=== PATIENT | male | born 1975 | race Caucasian/White ===

== ENCOUNTER → 2019-05-29 08:47 | Outpatient (CLI) | payer BC, SELFPAY ==
--- NOTE | 2019-05-29 08:55 | US_ITS ---
STUDY: RENAL ULTRASOUND - COMPLETE REASON FOR EXAM: Male, 43 years old. Microscopic hematuria. TECHNIQUE: Ultrasound evaluation of the kidneys was performed with real-time and static encinas-scale imaging. COMPARISON: None. FINDINGS: RIGHT KIDNEY: Normal location of the right kidney, which is normal in size. The right kidney measures 11.0 x 5.9 x 5.0 cm. There is a normal cortex of the right kidney. The renal cortex measures 1.7 cm. There is no right renal mass or cyst. There are no right renal calculi. There is no right hydronephrosis. DISTAL RIGHT URETER: There is non-visualization of the distal right ureter. There is no demonstrated right ureterovesical junction calculus. There is no demonstrated right ureteral jet. LEFT KIDNEY: Normal location of the left kidney, which is normal in size. The left kidney measures 11.3 x 4.9 x 6.5 cm. There is a normal cortex of the left kidney. The renal cortex measures 2.0 cm. There is no left renal mass or cyst. There are no left renal calculi. There is mild hydronephrosis of the left kidney. DISTAL LEFT URETER: There is non-visualization of the distal left ureter. There is no demonstrated left ureterovesical junction calculus. There is no demonstrated left ureteral jet. BLADDER: The distended urinary bladder has a volume of 41.2 ml. The empty urinary bladder has a volume of 2.18 ml. There is a normal wall thickness of the distended urinary bladder. There is no demonstrated mass within the urinary bladder. There are no demonstrated bladder calculi. US/Kidney and Bladder IMPRESSION: Mild left hydronephrosis, etiology indeterminate. If indicated, this can be further assessed with CT of the abdomen and pelvis. Remainder of the retroperitoneal ultrasound unremarkable. Minimal urinary retention of indeterminate clinical significance. Electronically Signed: Deidre Michelle MD at 4:31 EST , Service support ,
--- NOTE | 2019-05-29 09:16 | RAD_ITS ---
STUDY: X-RAY - CERVICAL SPINE REASON FOR EXAM: Male, 43 years old. Left shoulder pain. TECHNIQUE: 5 view(s) of the cervical spine were obtained. COMPARISON: None FINDINGS: Normal anterior atlantoaxial articulation. Normal odontoid process. Normal cervical lordosis. Normal vertebral bodies and endplates. Normal disc space heights. Normal visualized intervertebral neuroforamina. The soft tissue structures are unremarkable. There is no demonstrated fracture of the cervical spine. RAD/Cerv Spine 4 or 5 Views IMPRESSION: Normal x-ray examination of the visualized cervical spine. Electronically Signed: Deidre Michelle MD at 4:05 EST , Service support ,
== END ==
PROVIDERS: Family Provider Nurse Practitioner; PCP Nurse Practitioner; Referring Provider Nurse Practitioner; Visit Provider Nurse Practitioner
DX: R35.1 Nocturia (principal); R20.0 Anesthesia of skin
CPT/HCPCS: 72050; 76770

== ENCOUNTER → 2019-06-14 16:45 | Outpatient (CLI) | payer BC, SELFPAY ==
[2019-06-14 17:52] LABS: PSA,Total- Diagnostic 1.07 ng/mL (0.0-4.0)
== END ==
PROVIDERS: Family Provider Nurse Practitioner; PCP Nurse Practitioner; Referring Provider Nurse Practitioner Adult Health; Visit Provider Nurse Practitioner Adult Health
DX: R31.29 Other microscopic hematuria (principal)
CPT/HCPCS: 36415; 84153

== ENCOUNTER → 2019-06-29 07:17 | Outpatient (CLI) | payer BC, SELFPAY ==
--- NOTE | 2019-06-29 07:20 | CT_ITS ---
STUDY: CT ABDOMEN AND PELVIS WITH AND WITHOUT CONTRAST REASON FOR EXAM: Male, 43 years old. MICROSCOPIC HEMATURIA RADIATION DOSAGE (If Supplied By Facility): CTDIvol = ( 14.00 ) mGy, DLP = ( 1727.71 ) mGycm TECHNIQUE: Transaxial images were obtained from the dome of the diaphragm to the symphysis pubis with oral contrast. IV 100mL Isovue-300 was administered. Sagittal and coronal images were reconstructed. Individualized dose optimization techniques were used for this CT. COMPARISON: None. FINDINGS: The visualized lung bases are unremarkable. The visualized portions of the heart are within normal limits. Normal liver. Normal gallbladder and extrahepatic biliary system. There are multiple benign calcified granulomata of the spleen. Normal pancreas. Normal bilateral adrenal glands. No hydronephrosis. Tiny punctate calcification of the right kidney on image 35 of series 2 measures 1-2 mm. No ureteral calcifications. Left parapelvic cysts is simple appearing without significant enhancement. The visualized opacified ureters are unremarkable. Normal visualized stomach. Normal small intestine. Normal colon. The appendix is visualized and appears normal. Normal abdominal aorta. Normal inferior vena cava. Normal retroperitoneum. Unremarkable urinary bladder. There is a small umbilical hernia containing fat. There are degenerative changes of the lower thoracic spine. CT/CT Abd/Pelvis W/WO Contrast IMPRESSION: 1. Punctate nonobstructing right renal calculus. No hydronephrosis. 2. Left parapelvic renal cyst (simple, Bosniak I). Electronically Signed: Srinivasa Martinez MD (Brooks) at 14:55 EST , Service support ,
== END ==
PROVIDERS: Family Provider Nurse Practitioner; PCP Nurse Practitioner; Referring Provider Nurse Practitioner Adult Health; Visit Provider Nurse Practitioner Adult Health
DX: R31.29 Other microscopic hematuria (principal)
CPT/HCPCS: 74178; Q9967

== ENCOUNTER 2021-07-26 06:37 | Emergency (ER) | payer BC, SELFPAY ==
[2021-07-26 06:40] VITALS: BP 159/102; PULSE 76; RESP 16; TEMP 36.5; O2SAT 100; BMI 29.1
--- NOTE | 2021-07-26 06:48 | CT_ITS ---
STUDY: CT ABDOMEN AND PELVIS WITH CONTRAST REASON FOR EXAM: Male, 45 years old. Abd pain, H/O ulcerative colitis -- IV PO Contrast RADIATION DOSAGE (If Supplied By Facility): CTDIvol = ( 7.72 ) mGy, DLP = ( 817.13 ) mGycm TECHNIQUE: Transaxial images were obtained from the dome of the diaphragm to the symphysis pubis with oral contrast. Oral and amp; IV GASTROGRAFIN and amp; 100mL Isovue-300 was administered. Sagittal and coronal images were reconstructed. Individualized dose optimization techniques were used for this CT. COMPARISON: Comparison is made with prior study dated 06/29/2019. FINDINGS: The visualized lung bases are unremarkable. The visualized portions of the heart are within normal limits. Normal liver. Normal gallbladder and extrahepatic biliary system. There are multiple benign calcified granulomata of the spleen. Normal pancreas. Normal bilateral adrenal glands. Normal right kidney. Small left parapelvic cysts. Normal visualized stomach. There is evidence of circumferential thickening with focal areas of narrowing of the the distal ileum as well as the terminal ileum. Increased markings in the surrounding peritoneal fat with a small lymph nodes. This is suggestive for Crohn''s disease. There is diverticulosis of the transverse colon and sigmoid colon. Normal colon. The appendix is visualized and appears normal. Normal abdominal aorta. Normal inferior vena cava. Normal retroperitoneum. Normal urinary bladder. Small bilateral inguinal hernias containing fat worse on the left side. Small umbilical hernia containing fat. Normal osseous structures. CT/Abdomen/Pelvis WITH Contrast IMPRESSION: Small bowel inflammatory changes involving the terminal ileum as well as the distal ileum suggestive of Crohn''s disease. Electronically Signed: Chon Hull MD at 9:17 EST ,
--- NOTE | 2021-07-26 06:48 | EX.ED.DYSGE1 ---
HPI History of Present Illness Chief Complaint: General Illness Detail of Chief Complaint: Abdominal pain, N/V/D, headache Informant: patient Onset/Context/Timing Onset: Days (3 days ago) Context: Gradual Onset Current Severity: Moderate Maximum Severity: Moderate Narrative Narrative: Patient presents secondary to abdominal pain along with nausea, vomiting, and diarrhea. He also complains of headache. He denies fever or chills. Patient does have a history of ulcerative colitis. He is not currently taking any chronic medication for his ulcerative colitis. Spouse believes his last colonoscopy was 2 years ago and he is due to have another one this year. He denies any blood in the vomitus or stool. Patient did have Covid in late May. He recently received his booster shot. He is unsure if this is related to his current symptoms. [facility] Medical History Ulcerative colitis Allergy/AdvReac Type Severity Reaction Status Date / Time No Known Allergies Allergy Verified 07/26/21 06:38 Surgical History no surgical history Social History Smoking Status: Never smoker ROS ROS ED Constitutional Constitutional ED: Denies chills or fever(s) Eyes Eyes: Denies change in vision ENT ENT ED: Denies sore throat Cardiovascular Cardiovascular: Denies chest pain Respiratory/Chest Respiratory/Chest: Denies cough or dyspnea Gastrointestinal Gastrointestinal: Reports abdominal pain, diarrhea, nausea and vomiting Genitourinary Genitourinary ED: Denies dysuria Musculoskeletal Musculoskeletal: Denies back pain Integumentary Denies rash Neurologic Neurologic: Reports headache(s); Denies weakness Allergic/Immunologic Allergic/Immunologic ED: Denies urticaria EXAM Physical Exam Const Vital Signs: 07/26/21 06:40 07/26/21 06:43 Temperature 97.7 F L Temperature Source Temporal Pulse Rate 76 Respiratory Rate 16 Respiratory Effort Normal Respiratory Pattern Normal Blood Pressure 159/102 H Blood Pressure Mean 121 Pulse Ox 100 Positive well nourished and well developed General Appearance ED: well developed Eyes PERRL and EOMs intact bilaterally Neck supple Resp normal respiratory effort and clear to auscultation bilaterally Cardio regular rate and regular rhythm GI GI Narrative: Mild diffuse tenderness to palpation. No guarding or rebound. Auscultation: hypoactive bowel sounds Palpation: soft Extremity normal to inspection Neuro oriented x3 Sensorium / Orientation: alert Psych mental status grossly normal Skin no rashes or lesions noted MDM MDM MDM Narrative Medical decision making narrative: Patient given morphine and Zofran along with IV fluids. Lab work and CT scan of the abdomen pelvis obtained. Lab Data Labs: Laboratory Results - last 24 hr 07/26/21 06:50 WBC 6.8 RBC 5.00 Hgb 14.5 Hct 42.6 MCV 85.2 MCH 29.0 MCHC 34.0 RDW Std Deviation 36.8 RDW Coeff of Pablo 11.9 Plt Count 220 MPV 9.6 Immature Gran % (Auto) 0.100 Neut % (Auto) 74.4 H Lymph % (Auto) 15.5 L [place] % (Auto) 8.2 Eos % (Auto) 1.5 Baso % (Auto) 0.3 Absolute Neuts (auto) 5.1 Absolute Lymphs (auto) 1.06 Nucleated RBC % 0 Treatment and Re-Evaluation Comments:: Final test results pending at this time. Patient signed out to oncoming physician for final repeat exam and disposition. Discharge Plan Triage Chief Complaint: General Illness ED Provider: Celia Leone Dx/Rx/DC Orders Primary Care Provider: Lamar Knott NP Referrals: Lamar Knott ASSISTANT RESEARCH SCIENTIST, ASSISTANT RESEARCH SCIENTIST-C [Primary Care Provider] -
[2021-07-26] MEDS: Ondansetron 4 MG/2 ML Vial IV (06:57)
[2021-07-26] MEDS: 0.9% Normal Saline 1,000 ML 150 ML IV (06:57)
[2021-07-26] MEDS: Morphine 4 MG/ML Syringe IV (06:58)
[2021-07-26 07:03] LABS: Absolute Lymphocyte Count 1.06 X10^3/uL (0.83-4.51); Absolute Neutrophil Count 5.1 X10^3/uL (2.0-7.7); Basophil# 0.02 X10^3/uL; Basophil% 0.3 % (0-1); Eosinophils% 1.5 % (0-5); Hematocrit 42.6 % (40-54); Hemoglobin 14.5 g/dL (13.0-16.5); Lymphocyte # 1.06 X10^3/ul (0.83-4.51); Lymphocyte % 15.5 % (19-41); Mean Corpuscular Volume 85.2 fL (80-94); Mean Platelet Vol. 9.6 fl (6.2-12.0); Monocyte# 0.56 X10^3/uL; Monocyte% 8.2 % (0-10); NRBC Flagged by Analyzer 0 % (0-5); Neutrophil # 5.08 X10^3/uL (2.7-7.7); Neutrophil % 74.4 % (47-70); Platelet Count 220 K/mm3 (150-450); RBC Distribution Width CV 11.9 % (11.6-14.6); RBC Distribution Width SD 36.8 fl (35.1-43.9); White Blood Count 6.8 K/mm3 (4.4-11.0)
[2021-07-26] MEDS: Contrast Allergy Safety Check IV (07:15)
[2021-07-26 07:24] LABS: AST(SGOT) 28 U/L (15-37); Alanine Aminotransfer ALT/SGPT 55 U/L (16-61); Albumin, Serum 3.7 g/dL (3.2-5.0); Alkaline Phosphatase 57 U/L (45-117); Anion Gap 9 (5-15); BUN 20 mg/dL (7-18); BUN/Creat Ratio 18.7 RATIO (10-20); Bilirubin, Direct 0.18 mg/dL (0.00-0.30); Calcium,Total 8.9 mg/dL (8.5-10.1); Chloride 102 mmol/L (98-107); Creatinine, Serum 1.07 mg/dL (0.70-1.30); EST Glomerular Filtration Rate 80 mL/min (>60); Est Glom Filt Rate - Afr Amer 96 mL/min (>60); Estimated Creatinine Clearance 82.37 ml/min; Glucose 116 mg/dL (74-106); Lipase 78 U/L (73-393); Protein, Total 7.7 g/dL (6.4-8.2); Sodium Level 133 mmol/L (136-145)
[2021-07-26 08:41] VITALS: BP 158/80; PULSE 75; RESP 16; O2SAT 99
[2021-07-26] MEDS: predniSONE 20 MG Tablet 60 MG PO (10:33)
[2021-07-26 10:34] VITALS: BP 156/90; PULSE 74; RESP 16; O2SAT 98
== END 2021-07-26 10:35 | disposition home or self-care (01) ==
PROVIDERS: Emergency Provider Emergency Medicine; PCP Nurse Practitioner; Visit Provider Emergency Medicine
DX: K51.90 Ulcerative colitis, unspecified, without complications (principal)
CPT/HCPCS: 74177; 80048; 80076; 83690; 85025; 96374; 96375; 99284; J7030; Q9967; A4216; J2405

== ENCOUNTER 2023-05-01 14:59 | Emergency (ER) | payer BC, SELFPAY ==
[2023-05-01 15:00] VITALS: BP 167/116; PULSE 85; RESP 16; TEMP 36.6; O2SAT 100
[2023-05-01 15:28] VITALS: BMI 29.4
[2023-05-01 15:57] VITALS: BP 156/105; PULSE 77; RESP 15; O2SAT 99
--- NOTE | 2023-05-01 16:32 | EKG12_ITS ---
Test Reason : DIZZINESS Blood Pressure : / mmHG Vent. Rate : 073 BPM Atrial Rate : 073 BPM P-R Int : 136 ms QRS Dur : 086 ms QT Int : 378 ms P-R-T Axes : 031 023 -05 degrees QTc Int : 416 ms Normal sinus rhythm T wave abnormality, consider inferior ischemia Abnormal ECG Confirmed by KATYA BUI, ALLISON ([id number]), photo editor STEPHANIE REYNAGA ([id number]) on 05/12/2023 7:38:24 AM Referred By: Confirmed By:JENNIFER ALDANA MD
--- NOTE | 2023-05-01 16:32 | CT_ITS ---
INDICATION: Hypertensive urgency EXAMINATION: CT BRAIN - CT Head or Brain W/O Contrast Injection TECHNIQUE: Multiple axial images were obtained of the head without intravenous contrast. A radiation dose optimization technique was used for this scan. IV Contrast dosage and agent: None. COMPARISON: None. FINDINGS: BRAIN PARENCHYMA: No intra- or extra-axial hemorrhage. No evidence of acute infarct. No intracranial mass or mass effect. Posterior fossa structures are unremarkable. CSF SPACES: Appropriate for age. No hydrocephalus. Basal cisterns are patent. CALVARIUM, SKULL BASE, PARANASAL SINUSES AND MASTOID AIR CELLS: Near total opacification of the right maxillary sinus. No discrete lytic or blastic abnormalities. ORBITS: Both globes, extraocular muscles, optic nerves and retrobulbar fat appear unremarkable. CT/Brain/Head without Contrast IMPRESSION: No acute intracranial findings. Right maxillary sinusitis. Electronically Signed: Dylon Live MD at 17:39 EDT ,
--- NOTE | 2023-05-01 16:33 | EDS_ITS ---
HPI History of Present Illness Chief Complaint: Eye Problem Informant: patient and spouse/S.O. Narrative Narrative: 47-year-old male presenting to the emergency room with chief complaint of blurred vision. Patient states that today around 1130 while at work he suddenly had bilateral blurry vision. He also associates that with a frontal periorbital headache. Blurry vision has subsequently resolved. Symptoms lasted 3 to 4 hours. He denies any arm leg or speech symptoms. He has a history of hypertension and has been on amlodipine 5 mg for the past several years. He states this is never happened to him before. For the past 2 months he has had a intermittent pain in the right shoulder. It is not worse with movements. States that aches and last variable lengths. He states he cannot lay on it at night. He denies any trauma. Again no movements change the pain or uses it. No rashes. No urinary symptoms. He states that normally his blood pressure is normal while he takes the medication. He notes that at times people comment that his ears will suddenly appear very red and light redness around the ears onto the neck. In 2013 the patient had echocardiogram that had a positive bubble study. He did not follow-up with cardiology regarding this. Echocardiogram otherwise was negative with normal ejection fraction. [facility] Medical History Hypertension Ulcerative colitis Home Medications prednisone 20 mg tablet 60 mg (3 x 20 mg) PO DAILY #12 TABLETS 07/26/21 [Rx Last Taken Unknown] amlodipine 5 mg tablet 5 mg PO DAILY 05/01/23 [History Last Taken Unknown] Allergy/AdvReac Type Severity Reaction Status Date / Time No Known Allergies Allergy Verified 05/01/23 15:00 Social History Smoking Status: Never smoker ROS ROS ED Constitutional Constitutional ED: Denies chills, fever(s) or weight loss Eyes Eyes: Reports blurry vision; Denies change in vision or diplopia ENT ENT ED: Denies ear pain, rhinorrhea or sore throat Cardiovascular Cardiovascular: Denies chest pain, orthopnea, palpitations or racing heartbeat Respiratory/Chest Respiratory/Chest: Denies cough, dyspnea or orthopnea Gastrointestinal Gastrointestinal: Denies abdominal pain, diarrhea, nausea or vomiting Genitourinary Genitourinary ED: Denies dysuria, hematuria or urinary frequency Musculoskeletal Musculoskeletal: Reports other Details: Right shoulder pain ; Denies arthralgias, back pain, myalgias or neck pain Integumentary Denies abscess or rash Neurologic Neurologic: Reports headache(s); Denies weakness Psychiatric Psychiatric: Denies anxiety, depression, suicidal ideation or suicidal thoughts Endocrine Endocrinology: Denies polydipsia, polyphagia or polyuria Allergic/Immunologic Allergic/Immunologic ED: Denies mouth swelling, tongue swelling or urticaria EXAM Physical Exam Const Vital Signs: 05/01/23 15:00 05/01/23 15:31 05/01/23 15:57 Temperature 98 F Temperature Source Temporal Pulse Rate 85 77 Respiratory Rate 16 15 Respiratory Effort Normal Non-Labored Blood Pressure 167/116 H 156/105 H Blood Pressure Mean 133 122 Pulse Ox 100 99 Oxygen Delivery Method Room Air Room Air 05/01/23 17:06 05/01/23 17:56 Temperature Temperature Source Pulse Rate 73 73 Respiratory Rate 13 16 Respiratory Effort Blood Pressure 142/91 H 152/89 H Blood Pressure Mean 108 110 Pulse Ox 98 98 Oxygen Delivery Method Room Air Room Air Positive well nourished and well developed General Appearance ED: well developed HEENT Reports normocephalic, head/scalp atraumatic and moist mucous membranes Eyes PERRL and EOMs intact bilaterally Neck no lymphadenopathy, supple and no JVD Resp normal respiratory effort and clear to auscultation bilaterally Cardio regular rate, regular rhythm and no murmurs GI normal to inspection, nondistended, normoactive bowel sounds and non-tender Palpation: soft Back/Spine no CVA tenderness and normal ROM Extremity normal to inspection General Extremety ED: Negative for edema General Extremity: Negative for edema Neuro oriented x3 and CN's II-XII intact bilaterally Sensorium / Orientation: alert Motor Exam: strength 5/5 throughout Psych mental status grossly normal Mood & Affect: Negative for depressed or tearful Skin no rashes or lesions noted and no wounds MDM MDM MDM Narrative Medical decision making narrative: Initial head CT is negative. White count 11.7 hemoglobin of 14.8. Troponin is 4. BMP shows a normal glucose at 96. Normal liver shows all amount of protein. Dip positive for blood but microscopic is 0-5. My independent interpretation of the chest x-ray is no acute process. Patient has remained hypertensive around 150/100 on average. He received a dose of Tylenol as well as an additional 5 mg of Norvasc. I do wonder if the patient is having elevated blood pressures causing his symptoms. I will have him increase his Norvasc to 10 mg a day and have him record his pressures for 7 to 10 days and follow-up with his [facility] doctor. He should probably follow-up with cardiology regarding his abnormal echocardiogram from 2013. For the shoulder I do not have a clear etiology for it. Does not sound musculoskeletal in nature. However am not convinced that this is an anginal equivalent. Patient understands return instructions. History & Record Review Discussion w/independent historian: Patient and Family Lab Data Attestation: I reviewed the patient's lab results. Labs: Laboratory Results - last 24 hr 05/01/23 16:45 WBC 11.7 H RBC 5.14 Hgb 14.8 Hct 44.2 MCV 86.0 MCH 28.8 MCHC 33.5 RDW Std Deviation 38.1 RDW Coeff of Pablo 12.1 Plt Count 235 MPV 9.5 Immature Gran % (Auto) 0.300 Neut % (Auto) 83.8 H Lymph % (Auto) 9.7 L [place] % (Auto) 5.7 Eos % (Auto) 0.2 Baso % (Auto) 0.3 Absolute Neuts (auto) 9.8 H Absolute Lymphs (auto) 1.13 Nucleated RBC % 0 Sodium 136 Potassium 4.2 Chloride 104 Carbon Dioxide 27.0 Anion Gap 5 BUN 22 H Creatinine 1.05 Estim Creat Clear Calc 82.19 Est GFR (MDRD) Af Amer 98 Est GFR (MDRD) Non-Af 81 BUN/Creatinine Ratio 21.0 H Glucose 96 Calcium 9.1 Total Bilirubin 0.60 AST 15 ALT 32 Alkaline Phosphatase 58 Troponin I High Sens 4 Total Protein 7.7 Albumin 3.9 Globulin 3.8 Albumin/Globulin Ratio 1.0 Urine Color Yellow Urine Clarity Clear Urine pH 6.0 Ur Specific [place] 1.015 Urine Protein 30 H Urine Glucose (UA) Normal Urine Ketones 5 H Urine Occult Blood 150 H Urine Nitrite Negative Urine Bilirubin Negative Urine Urobilinogen Normal Ur Leukocyte Esterase Negative Urine RBC 0-5 SEEN Urine WBC 0 SEEN Ur Squamous Epith Cells 0 SEEN Urine Bacteria 0 SEEN Urine Mucus 0 SEEN Radiography Diagnostic Testing: Clinical Impression(s) from Imaging Studies Brain CT 05/01/23 16:32 IMPRESSION: No acute intracranial findings. Right maxillary sinusitis. Electronically Signed: Dylon Live MD at 17:39 EDT , Chest X-Ray 05/01/23 17:09 IMPRESSION: No radiographic evidence of acute cardiopulmonary disease. Electronically Signed: Dylon Live MD at 17:31 EDT , EKG Initial EKG: Attestation: I personally reviewed and interpreted this EKG as follows: Comments: Normal sinus rhythm with a ventricular rate of 73 bpm. T wave abnormality noted inferiorly. Discharge Plan Triage Chief Complaint: Eye Problem ED Provider: Shankar Jaimes Dx/Rx/DC Orders Prescriptions: No Action prednisone 20 MG tablet 60 mg PO DAILY Qty: 12 0RF Hold Instructions: Pt has been DC'd amlodipine 5 mg tablet 5 mg PO DAILY Patient Comments: TAKE 1 TABLET BY MOUTH EVERY DAY Primary Care Provider: Karrie Bower Referrals: Karrie Bower, TAFE LECTURER-C [Primary Care Provider] -
[2023-05-01 16:56] LABS: Bacteria 0 SEEN /hpf (None Seen); Mucous, Urine 0 SEEN /hpf (<or=2+); Squamous Epithelial Cells - UA 0 SEEN /hpf (0-5); White Blood Cells 0 SEEN /hpf (0-5)
[2023-05-01 16:57] LABS: Color, Urine Yellow (Yellow); Glucose, Dipstick Normal (Normal); Ketone-Dipstick 5 mg/dl (Negative); Leukocyte Esterase-Dipstick Negative /ul (Negative); Nitrite-Dipstick Negative (Negative); Occult Blood-Urine 150 /ul (Negative); Protein-Dipstick 30 mg/dl (Negative); Specific Gravity, Urine 1.015 (1.002-1.030); Urine Bilirubin Dipstick Negative (Negative); Urine Clarity Clear (Clear); Urine Urobilinogen Normal (Normal)
[2023-05-01 16:58] LABS: Absolute Lymphocyte Count 1.13 X10^3/uL (0.83-4.51); Absolute Neutrophil Count 9.8 X10^3/uL (2.0-7.7); Basophil# 0.03 X10^3/uL; Basophil% 0.3 % (0-1); Eosinophil# 0.02 X10^3/uL; Eosinophils% 0.2 % (0-5); Hematocrit 44.2 % (40-54); Hemoglobin 14.8 g/dL (13.0-16.5); Lymphocyte # 1.13 X10^3/ul (0.83-4.51); Lymphocyte % 9.7 % (19-41); Mean Corp Hgb Conc 33.5 g/dL (32-36); Mean Corpuscular Hgb 28.8 pg (27.0-32.0); Mean Platelet Vol. 9.5 fl (6.2-12.0); Monocyte# 0.66 X10^3/uL; Monocyte% 5.7 % (0-10); NRBC Flagged by Analyzer 0 % (0-5); Neutrophil # 9.79 X10^3/uL (2.7-7.7); Neutrophil % 83.8 % (47-70); Platelet Count 235 K/mm3 (150-450); RBC Distribution Width CV 12.1 % (11.6-14.6); RBC Distribution Width SD 38.1 fl (35.1-43.9); Red Blood Count 5.14 M/mm3 (4.6-6.2); White Blood Count 11.7 K/mm3 (4.4-11.0)
[2023-05-01 17:05] LABS: Red Blood Cells-Urine 0-5 SEEN /hpf (0-5)
[2023-05-01 17:06] VITALS: BP 142/91; PULSE 73; RESP 13; O2SAT 98
--- NOTE | 2023-05-01 17:09 | RAD_ITS ---
INDICATION: Hypertensive urgency EXAMINATION/TECHNIQUE: X-RAY - portable upright AP chest x-ray COMPARISON: None. FINDINGS: LINES/DEVICES: None. LUNGS: No consolidation, edema or effusion. No pneumothorax. MEDIASTINUM AND CARDIOVASCULAR STRUCTURES: Cardiac silhouette not enlarged. Central airways and mediastinal contour are unremarkable. BONES AND SOFT TISSUES: Unremarkable. RAD/Chest 1 View (Portable) IMPRESSION: No radiographic evidence of acute cardiopulmonary disease. Electronically Signed: Dylon Live MD at 17:31 EDT ,
[2023-05-01 17:18] LABS: AST(SGOT) 15 U/L (15-37); Alanine Aminotransfer ALT/SGPT 32 U/L (16-61); Albumin, Serum 3.9 g/dL (3.2-5.0); Alkaline Phosphatase 58 U/L (45-117); Anion Gap 5 (5-15); BUN 22 mg/dL (7-18); Calcium,Total 9.1 mg/dL (8.5-10.1); Chloride 104 mmol/L (98-107); Creatinine, Serum 1.05 mg/dL (0.70-1.30); EST Glomerular Filtration Rate 81 mL/min (>60); Est Glom Filt Rate - Afr Amer 98 mL/min (>60); Estimated Creatinine Clearance 82.19 ml/min; Globulin 3.8 g/dL (2.2-4.2); Glucose 96 mg/dL (74-106); Potassium 4.2 mmol/L (3.5-5.1); Protein, Total 7.7 g/dL (6.4-8.2); Sodium Level 136 mmol/L (136-145); Troponin-I HS 4 pg/mL (3.0-78.0)
[2023-05-01 17:56] VITALS: BP 152/89; PULSE 73; RESP 16; O2SAT 98
[2023-05-01] MEDS: Acetaminophen 500 MG Tablet 1000 MG PO (18:05)
[2023-05-01] MEDS: amLODIPine 5 MG Tablet PO (18:05)
[2023-05-01 18:32] VITALS: BP 135/90; PULSE 69; RESP 13; O2SAT 97
== END 2023-05-01 18:39 | disposition home or self-care (01) ==
PROVIDERS: Emergency Provider Emergency Medicine; PCP Nurse Practitioner Family; Visit Provider Emergency Medicine
DX: H53.8 Other visual disturbances (principal); I10 Essential (primary) hypertension; Z79.899 Other long term (current) drug therapy
CPT/HCPCS: 70450; 71045; 80053; 81001; 84484; 85025; 93005; 99285; A4216

== ENCOUNTER → 2023-05-12 | Outpatient (CLI) | payer BC, SELFPAY ==
[2023-05-12 16:31] LABS: Bacteria 0 SEEN /hpf (None Seen); Mucous, Urine 0 SEEN /hpf (<or=2+); Red Blood Cells-Urine 0 SEEN /hpf (0-5); Squamous Epithelial Cells - UA 0 SEEN /hpf (0-5); White Blood Cells 0 SEEN /hpf (0-5)
[2023-05-12 17:44] LABS: Absolute Lymphocyte Count 1.59 X10^3/uL (0.83-4.51); Absolute Neutrophil Count 4.9 X10^3/uL (2.0-7.7); Basophil# 0.04 X10^3/uL; Basophil% 0.6 % (0-1); Eosinophil# 0.05 X10^3/uL; Eosinophils% 0.7 % (0-5); Hematocrit 42.6 % (40-54); Hemoglobin 14.2 g/dL (13.0-16.5); Lymphocyte # 1.59 X10^3/ul (0.83-4.51); Lymphocyte % 21.9 % (19-41); Mean Corp Hgb Conc 33.3 g/dL (32-36); Mean Corpuscular Hgb 29.2 pg (27.0-32.0); Mean Corpuscular Volume 87.5 fL (80-94); Mean Platelet Vol. 9.5 fl (6.2-12.0); Monocyte% 9.6 % (0-10); NRBC Flagged by Analyzer 0 % (0-5); Neutrophil # 4.86 X10^3/uL (2.7-7.7); Neutrophil % 66.9 % (47-70); Platelet Count 239 K/mm3 (150-450); RBC Distribution Width SD 38.8 fl (35.1-43.9); Red Blood Count 4.87 M/mm3 (4.6-6.2); White Blood Count 7.3 K/mm3 (4.4-11.0)
[2023-05-12 17:57] LABS: Erythrocyte Sedimentation Rate 9 mm/hr (0-20)
[2023-05-12 18:30] LABS: Color, Urine Yellow (Yellow); Glucose, Dipstick Normal (Normal); Ketone-Dipstick Negative (Negative); Leukocyte Esterase-Dipstick 25 /ul (Negative); Nitrite-Dipstick Negative (Negative); Occult Blood-Urine 150 /ul (Negative); Protein-Dipstick 15 mg/dl (Negative); Urine Bilirubin Dipstick Negative (Negative); Urine Clarity Clear (Clear); Urine Urobilinogen Normal (Normal)
[2023-05-12 18:31] LABS: CRP, High Sensitivity Cardiac 1.87 mg/L; Cholesterol 244 mg/dL (200); High Density Lipoprotein 64 mg/dL; Thyroid Stim Hormone (TSH) 1.84 uIU/mL (0.358-3.74); Triglycerides 101 mg/dL; Very Low Density Lipoprotein 20 mg/dL (5-40)
[2023-05-12 18:44] LABS: Microalbumin,Random Urine 49.3 mg/L (NO RANGE EST.); Microalbumin:Creatinine Ratio 41.8 mg/g CRE (<30 mg/g CRE)
== END | disposition home or self-care (01) ==
LOC: MTLAB 16:27
PROVIDERS: PCP Nurse Practitioner Family; Referring Provider Nurse Practitioner Family; Visit Provider Nurse Practitioner Family
DX: R53.83 Other fatigue (principal); E78.5 Hyperlipidemia, unspecified; R80.9 Proteinuria, unspecified; I10 Essential (primary) hypertension
CPT/HCPCS: 36415; 80061; 81001; 82043; 82570; 84443; 85025; 85652; 86141

== ENCOUNTER → 2023-05-27 | Outpatient (CLI) | payer BC, SELFPAY ==
--- NOTE | 2023-05-27 13:12 | ECHOD_ITS ---
Reason For Study: Patent Foramen Ovale Procedure This was a 2D Doppler, Color Flow transthoracic echocardiogram. Exam performed in department. Left Ventricle Normal LV size. Left ventricular systolic function is normal. The estimated ejection fraction is 60 %. No regional wall motion abnormalities noted. Right Ventricle Normal RV size. Normal systolic function. Atria Normal left atrium. Normal right atrium. Mitral Valve Normal mitral valve. Tricuspid Valve Normal tricuspid valve. Aortic Valve Normal aortic valve. Pulmonic Valve Normal pulmonic valve. Great Vessels Normal aortic root. The pulmonary artery is normal size. Normal inferior vena cava. Pericardium/Pleural No pericardial effusion. 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 MMode/2D Measurements & Calculations LVIDd: 4.8 cm IVSd: 0.99 cm Ao root diam: 3.3 cm LVIDs: 3.0 cm LVPWd: 1.0 cm LA dimension: 4.1 cm RVDd: 4.0 cm FS: 37.5 % LAV(MOD-bp): 45.7 ml LA A4 area: 16.1 cm2 RA A4 area: 19.2 cm2 LAV(MOD-sp2): 48.8 ml LAV(MOD-sp4): 42.3 ml TAPSE: 2.0 cm Time Measurements MV dec time: 0.18 sec Doppler Measurements & Calculations MV E max rei: 75.3 cm/sec Lat Peak E' Rei: 10.3 cm/sec Med Peak E' Rei: 8.4 cm/sec MV A max rei: 67.8 cm/sec E/E' lat: 7.3 E/E' med: 9.0 MV E/A: 1.1 MV V2 max: 87.4 cm/sec MV P1/2t max rei: 87.4 cm/sec Ao V2 max: 186.4 cm/sec MV max P.1 mmHg MV P1/2t: 60.8 msec Ao max P.9 mmHg MV V2 mean: 52.2 cm/sec Ao V2 mean: 122.7 cm/sec MV mean P.3 mmHg MV dec slope: 421.1 cm/sec2 Ao mean P.1 mmHg MV V2 VTI: 21.0 cm MVA(P1/2t): 3.6 cm2 Ao V2 VTI: 34.1 cm AV (velocity ratio): 0.85 LV V1 max: 141.8 cm/sec PA V2 max: 137.7 cm/sec LV V1 max P.0 mmHg PA V2 mean: 96.9 cm/sec LV V1 mean P.2 mmHg LV V1 mean: 95.8 cm/sec LV V1 VTI: 29.0 cm ECHO/Echo Complete Interpretation Summary Normal LV size. Left ventricular systolic function is normal. The estimated ejection fraction is 60 %. Structurally normal valves. Ordering Physician: Karrie Bower Referring Physician: Karrie Bower Performed By: Ricky Heller RCS
== END | disposition home or self-care (01) ==
LOC: CVS 13:10
PROVIDERS: PCP Nurse Practitioner Family; Referring Provider Nurse Practitioner Family; Visit Provider Nurse Practitioner Family
DX: Q21.12 Patent foramen ovale (principal)
CPT/HCPCS: 93306

== ENCOUNTER → 2023-12-08 | Outpatient (CLI) | payer BC, SELFPAY ==
[2023-12-08 16:42] LABS: Squamous Epithelial Cells - UA 0 SEEN /hpf (0-5); White Blood Cells 0 SEEN /hpf (0-5)
[2023-12-08 17:31] LABS: Absolute Lymphocyte Count 1.64 X10^3/uL (0.83-4.51); Basophil# 0.04 X10^3/uL; Basophil% 0.5 % (0-1); Eosinophil# 0.17 X10^3/uL; Eosinophils% 2.3 % (0-5); Hematocrit 42.2 % (40-54); Hemoglobin 13.9 g/dL (13.0-16.5); Lymphocyte # 1.64 X10^3/ul (0.83-4.51); Lymphocyte % 21.8 % (19-41); Mean Corp Hgb Conc 32.9 g/dL (32-36); Mean Corpuscular Hgb 28.3 pg (27.0-32.0); Mean Corpuscular Volume 85.8 fL (80-94); Mean Platelet Vol. 9.9 fl (6.2-12.0); Monocyte# 0.68 X10^3/uL; NRBC Flagged by Analyzer 0 % (0-5); Neutrophil # 4.98 X10^3/uL (2.7-7.7); Neutrophil % 66.1 % (47-70); Platelet Count 249 K/mm3 (150-450); RBC Distribution Width CV 12.2 % (11.6-14.6); RBC Distribution Width SD 37.9 fl (35.1-43.9); Red Blood Count 4.92 M/mm3 (4.6-6.2); White Blood Count 7.5 K/mm3 (4.4-11.0)
[2023-12-08 17:35] LABS: Color, Urine Yellow (Yellow); Glucose, Dipstick Normal (Normal); Ketone-Dipstick Negative (Negative); Leukocyte Esterase-Dipstick Negative /ul (Negative); Nitrite-Dipstick Negative (Negative); Occult Blood-Urine 150 /ul (Negative); Protein-Dipstick 15 mg/dl (Negative); Urine Bilirubin Dipstick Negative (Negative); Urine Clarity Clear (Clear); Urine Urobilinogen Normal (Normal)
[2023-12-08 17:46] LABS: Bacteria RARE /hpf (None Seen); Mucous, Urine 1+ /hpf (<or=2+); Red Blood Cells-Urine 0-5 SEEN /hpf (0-5)
[2023-12-08 18:00] LABS: Hemoglobin A1c 5.2 % (3.8-5.6)
[2023-12-08 18:01] LABS: Microalbumin,Random Urine 53.4 mg/L (NO RANGE EST.); Microalbumin:Creatinine Ratio 38.7 mg/g CRE (<30 mg/g CRE)
[2023-12-09 14:16] LABS: AST(SGOT) 17 U/L (15-37); Alanine Aminotransfer ALT/SGPT 33 U/L (16-61); Albumin, Serum 3.8 g/dL (3.2-5.0); Alkaline Phosphatase 58 U/L (45-117); Anion Gap 5 (5-15); BUN 19 mg/dL (7-18); BUN/Creat Ratio 19.6 RATIO (10-20); CRP, High Sensitivity Cardiac 2.19 mg/L; Calcium,Total 8.8 mg/dL (8.5-10.1); Chloride 107 mmol/L (98-107); Cholesterol 230 mg/dL (200); Creatinine, Serum 0.97 mg/dL (0.70-1.30); EST Glomerular Filtration Rate 89 mL/min (>60); Est Glom Filt Rate - Afr Amer 107 mL/min (>60); Globulin 3.9 g/dL (2.2-4.2); Glucose 86 mg/dL (74-106); High Density Lipoprotein 64 mg/dL; Potassium 4.2 mmol/L (3.5-5.1); Protein, Total 7.7 g/dL (6.4-8.2); Sodium Level 137 mmol/L (136-145); Thyroid Stim Hormone (TSH) 1.67 uIU/mL (0.358-3.74); Triglycerides 79 mg/dL; Very Low Density Lipoprotein 16 mg/dL (5-40)
[2023-12-10 22:07] LABS: PSA, Total 0.8 ng/mL (0.0-4.0)
== END | disposition home or self-care (01) ==
PROVIDERS: PCP Nurse Practitioner Family; Referring Provider Nurse Practitioner Family; Visit Provider Nurse Practitioner Family
DX: R80.9 Proteinuria, unspecified (principal); E78.5 Hyperlipidemia, unspecified; R31.9 Hematuria, unspecified; Z80.42 Family history of malignant neoplasm of prostate; I10 Essential (primary) hypertension
CPT/HCPCS: 36415; 80053; 80061; 81001; 82043; 82570; 83036; 84153; 84443; 85025; 86141; 87086

== ENCOUNTER → 2024-01-31 | Outpatient (CLI) | payer BC, SELFPAY ==
--- NOTE | 2024-01-31 10:24 | US_ITS ---
INDICATION: Asymptomatic microscopic hematuria EXAMINATION: Ultrasound US Kidney(s) complete (eg, kidneys and bladder) TECHNIQUE: Ibrahim scale and color doppler images were obtained of the kidneys and bladder. COMPARISON: CT dated 07/26/2021 FINDINGS: RIGHT KIDNEY: 10.5 x 5.4 x 6.1 cm. There is no hydronephrosis. No shadowing calculus, focal lesion or perinephric collection is demonstrated. LEFT KIDNEY: 11.1 x 6.8 x 5.67. There is no hydronephrosis. No shadowing calculus, focal lesion or perinephric collection is demonstrated. Multiple benign parapelvic cysts redemonstrated.. No follow-up imaging recommended. URINARY BLADDER: No acute abnormality. Left ureteral jet is visualized. Right ureteral jet is not visualized. US/Kidney and Bladder IMPRESSION: Negative renal ultrasound. Electronically Signed: Evens English MD at 0:50 EDT ,
== END | disposition home or self-care (01) ==
PROVIDERS: PCP Nurse Practitioner Family; Referring Provider Urology; Visit Provider Urology
DX: R31.21 Asymptomatic microscopic hematuria (principal); Z12.5 Encounter for screening for malignant neoplasm of prostate
CPT/HCPCS: 76770